=== PATIENT | female | born 1970 | race Caucasian/White ===

== ENCOUNTER 2020-08-10 20:33 | Emergency (ER) | payer OTHER ==
[~2020-08-10] VITALS: Ht 152.4 cm; Wt 85.3 kg
[~2020-08-10 20:33] MED LIST: ESG PO; KEFLEX500 MG PO; NITROSTAT0.4 MG SL; ONDANSETRON ODT4 M1 SL; TOR10 PO
[2020-08-10 20:47] VITALS: Ht 152.4 cm; Wt 85.3 kg
[2020-08-10 23:30] LABS: PLATELET COUNT 368 x10^3mcL (179-408); RED CELL DISTRIBUTION WIDTH 13.7 % (12.3-17.7)
[2020-08-10 23:31] LABS: BASOPHIL % 3.4 % (0.2-1.3)
[2020-08-11 00:35] LABS: CARBON DIOXIDE 26.1 mmol/L (21-32); CHLORIDE SERUM 104 mmol/L (98-107); POTASSIUM SERUM 3.3 mmol/L (3.5-5.1); SODIUM SERUM 136 mmol/L (136-145)
[2020-08-11 00:36] LABS: ALBUMIN 3.4 g/dL (3.4-5.0); BILIRUBIN TOTAL 0.2 mg/dL (0.20-1.00); CALCIUM 8.8 mg/dL (8.5-10.1); CREATININE SERUM 0.6 mg/dL (0.6-1.0); GFR1 > 60 mL/min; GLUCOSE SERUM 126 mg/dL (74-106); TOTAL PROTEIN, SERUM 7.5 g/dL (6.4-8.2)
[2020-08-11 00:37] LABS: ALKALINE PHOSPHATASE 108 U/L (46-116); ALT/SGPT 31 U/L (14-59); AST/SGOT 20 U/L (15-37)
[2020-08-11 02:06] VITALS: BP 120/58
== END 2020-08-11 01:40 | disposition home or self-care (01) ==
LOC: ED 20:33
PROVIDERS: Emergency Medicine
DX: R20.2 Paresthesia of skin (principal); M62.838 Other muscle spasm